=== PATIENT | female | born 1980 | race Caucasian/White ===

== ENCOUNTER 2016-05-01 09:20 | Day surgery (SDC) | payer OTHER ==
[2016-04-29 14:48] VITALS: BMI 51.1
[~2016-05-01 09:20] MED LIST: LACTATED RINGERS 1,000 ML IV SCH
[2016-05-01 09:32] VITALS: TEMP 98.1
[2016-05-01] MEDS ORDERED: LIDOCAINE 1% 20 ML VIAL (10MG/ML) FOR IV START SQ ONE (09:32)
[2016-05-01] MEDS ORDERED: LACTATED RINGERS 1,000 ML IV ONE (09:35)
[2016-05-01] MEDS ORDERED: BUPIVACAINE (PF) 0.5% 30 ML VIAL ONE (09:55)
[2016-05-01] MEDS ORDERED: TRIAMCINOLONE ACETONIDE 40 MG/ML 1 ML VIAL ONE (09:55)
[2016-05-01] MEDS ORDERED: fentaNYL (PF) 50 MCG/ML 2 ML AMP ONE (09:55)
[2016-05-01] MEDS ORDERED: MIDAZOLAM 2 MG/2 ML VIAL ONE (09:55)
--- NOTE | 2016-05-01 10:42 | P.PCN ---
Date of Procedure: 05/01/16 Procedure(s) Performed: PREOPERATIVE DIAGNOSIS: 1-Lumbar Spondylosis with Facet Arthropathy without myelopathy. POSTOPERATIVE DIAGNOSIS: 1- Lumbar Spondylosis with Facet Arthropathy without myelopathy. PROCEDURES : Right Radiofrequency thermocoagulation, L3-L4, L4-L5, and L5- S1 medial branch, with fluoroscopic guidance ANESTHESIA: IV sedation with versed 3 mg and fentaneyl 200 mcg and local infiltration with lidocaine 1% 6 ml EBL: Minimal PROCEDURE INDICATION: The patient with low back pain secondary to lumbar facet arthropathy who had more than 50% relief of her pain with previous diagnostic lumbar medial branch block with bupivacaine.and we did the radiofrequency ablation of the medial branch on patient gets good pain relief for more than 6 months ,and she is back to have the radiofrequency ablation of the medial branch to be done again. PROCEDURE DESCRIPTION / TECHNIQUE: The patient was seen and identified in the preoperative area. Risks, benefits, complications, including but not limited to risk of infection ,bleeding , allergic reactions to the medications and no complete pain releife , and alternatives were discussed with the patient, the patient agreed to proceed with the procedure and signed the consent. IV was started. Vital signs remained stable throughout the procedure. Patient was taken to the OR and time out was completed. The patient was placed in the prone position on the procedure table. The lumber area was prepped and draped in the usual sterile fashion. . Vital signs were closely monitored during the procedure .IV sedation was used during the procedure to decrease patients anxiety. Using AP and then oblique fluoroscopy, the eye of the Camilo dog corresponding to the connection between the superior and transverse articular processes of right L3, L4, and L5 were identified, marked, and localized with 1 % lidocaine. Subsequently, a 20 guage (VENUM ) 150-mm radiofrequency cannula with a 10-mm active tip was advanced guided by fluoroscopy to each of the eyes of the Camilo dog at right L3, L4, and L5. Each site then underwent sensory testing at 50 Hz and 0 to 1 volt and motor testing at 2.5 Hz and 0 to 3 volt with local stimulation, but no radicular symptoms down the legs. Thereafter the right L3-4, L4-5, and L5-S1 sites underwent radiofrequency thermocoagulation at 80 degrees celsius for 90 seconds after injecting 0.5 ml of PF lidocaine 1%. then After the thermocoagulation done , 1 ml of the block solution containing Kenalog 40 mg and 3 ml of marain 0.5% was injected at the right L3- 4 , L4-5 , and L5-S1, levels after negative aspiration of CSF and blood and with no paresthesias. Cannulas were retracted while injecting lidocaine 1% until the needle is out. At the end of the procedure, the skin was cleansed and bandages were applied. COMPLICATIONS: No acute complications. DISPOSITION / PLANS: The patient was placed in a supine position and transferred to the recovery area in a stable condition for observation and was discharged from the recovery room after meeting discharge criteria. Home discharge instructions given to the patient by the staff. The patient was reexamined prior to discharge. The patient will schedule a follow up in the clinic in 2-4 weeks.
[2016-05-01] MEDS ORDERED: IV FLUID CONTINUATION 1,000 ML IV ONE (10:49)
--- NOTE | 2016-05-01 11:29 | FL ---
EXAMINATION TYPE: FL guided pain mgmt statistic DATE OF EXAM: 05/01/2016 10:37 AM HISTORY: Flouroscopy time 40 seconds of fluoroscopy provided. IMPRESSION: 1. Fluoroscopy time.
[2016-05-01 11:43] VITALS: BP 115/74; PULSE 75; RESP 16
== END 2016-05-01 11:33 | disposition home or self-care (01) ==
LOC: ORPAIN 09:20
PROVIDERS: ATTEND Specialist
DX: M46.86 Other specified inflammatory spondylopathies, lumbar region (principal); M47.816 Spondylosis without myelopathy or radiculopathy, lumbar region; Z88.5 Allergy status to narcotic agent; Z88.0 Allergy status to penicillin
CPT/HCPCS: 81025; 64635; 64636 ×2; J2250; J3301; J3010

== ENCOUNTER 2017-08-27 13:16 | Inpatient (IN) | payer OTHER ==
[2017-08-27 13:33] LABS: Basophils % (A) 0 %; Eosinophils # (A) 0.2 k/uL (0-0.7); Eosinophils % (A) 1 %; HCT 36.4 % (34.0-46.0); HGB 11.6 gm/dL (11.4-16.0); Hypochromasia Slight; Lymphocytes # (A) 0.4 k/uL (1.0-4.8); Lymphocytes % (A) 3 %; Mean Platelet Volume 7.4; Microcytosis Slight; Monocytes # (A) 0.1 k/uL (0-1.0); Monocytes % (A) 1 %; Neutrophils # (A) 12.6 k/uL (1.3-7.7); Neutrophils % (A) 95 %; Platelet Count 232 k/uL (150-450); RBC 4.85 m/uL (3.80-5.40); RDW 15.5 % (11.5-15.5); WBC 13.4 k/uL (3.8-10.6)
[2017-08-27 13:44] LABS: INR 1.1 (<1.2); Partial Thromboplastin Time 31.4 sec (22.0-30.0); Prothrombin Time 10.3 sec (9.0-12.0)
[2017-08-27] MEDS ORDERED: HEPARIN SODIUM,PORCINE 5,000 UNIT/ML 1 ML VIAL IV PRN (14:00)
[2017-08-27] MEDS ORDERED: WATER IV SCH ×2 (14:00)
[2017-08-27] MEDS ORDERED: DEXTROSE 5% IV SCH ×2 (14:00)
[2017-08-27] MEDS ORDERED: D5W PMX IV SCH ×2 (14:00)
[2017-08-27] MEDS ORDERED: HEPARIN SODIUM PORCINE IV SCH ×2 (14:00)
[2017-08-27 14:01] LABS: ALT 15 U/L (9-52); AST 20 U/L (14-36); Albumin 3.8 g/dL (3.5-5.0); Alkaline Phosphatase 82 U/L (38-126); Anion Gap 15 mmol/L; Blood Urea Nitrogen 10 mg/dL (7-17); Calcium 9.1 mg/dL (8.4-10.2); Carbon Dioxide 22 mmol/L (22-30); Chloride 106 mmol/L (98-107); Glucose 138 mg/dL (74-99); Magnesium 2.1 mg/dL (1.6-2.3); Potassium 3.8 mmol/L (3.5-5.1); Sodium 143 mmol/L (137-145); Total Bilirubin 0.5 mg/dL (0.2-1.3); Total Protein 6.9 g/dL (6.3-8.2)
[2017-08-27 14:06] LABS: Creatine Kinase MB 1.4 ng/mL (0.0-2.4)
[2017-08-27 14:10] LABS: Troponin I 0.423 ng/mL (0.000-0.034)
[2017-08-27] MEDS ORDERED: NITROGLYCERIN OINT 1 INCH/GM PACKET TOPICAL STA (14:15)
[2017-08-27] MEDS ORDERED: MORPHINE SULFATE 4 MG/ML SYRINGE IVP STA (14:15)
--- NOTE | 2017-08-27 14:15 | ED ---
General Adult HPI - General Chief complaint: Chest Pain Stated complaint: CHEST PAIN Time Seen by Provider: 08/27/17 13:21 Source: patient, RN notes reviewed Mode of arrival: EMS Limitations: no limitations - History of Present Illness Initial comments: 37-year-old female transferred from outside hospital for elevated troponin and chest pain. Patient's pain began yesterday night, was substernal. It was somewhat typical for ACS. EKG showed nonspecific T-wave inversion, patient was heparinized and transferred for cardiology evaluation. At the time of my evaluation patient is still having ongoing pain. No nausea or vomiting. Mild dyspnea. No cough or fever. - Related Data Home Medications Medication Instructions Recorded Confirmed Ferrous Sulfate [Iron (65 MG 325 mg PO DAILY 10/05/14 08/27/17 Elemental)] Budesonide-Formot 160-4.5 Mcg 2 inhaler INHALATION BID 12/06/14 08/27/17 [Symbicort 160-4.5 Mcg Inhaler] Albuterol Inhaler [Ventolin Hfa 1 - 2 puff INHALATION Q6HR PRN 01/29/16 08/27/17 Inhaler] Albuterol Nebulized [Ventolin 2.5 mg INHALATION RT-Q6H PRN 01/29/16 08/27/17 Nebulized] Loratadine [Claritin] 10 mg PO DAILY 01/29/16 08/27/17 Oxybutynin Chloride [Ditropan XL] 15 mg PO DAILY 01/29/16 08/27/17 Previous Rx's Medication Instructions Recorded Ibuprofen [Motrin] 800 mg PO Q8HR PRN #90 tablet 12/06/14 Allergies Allergy/AdvReac Type Severity Reaction Status Date / Time varenicline [From Chantix] Allergy Unknown Rash/Hives Verified 08/27/17 14:06 codeine Allergy Rash/Hives Verified 08/27/17 14:06 Penicillins Allergy Rash/Hives Verified 08/27/17 14:06 Review of Systems ROS Statement: Those systems with pertinent positive or pertinent negative responses have been documented in the HPI. ROS Other: All systems not noted in ROS Statement are negative. Past Medical History Past Medical History: Asthma, COPD, Musculoskeletal Disorder, Osteoarthritis (OA ), Pulmonary Embolus (PE) Additional Past Medical History / Comment(s): SPINA BIFIDA, BILATERAL PE (?2004) , ANEMIA, BACK PAIN. History of Any Multi-Drug Resistant Organisms: None Reported Past Surgical History: Back Surgery, Section, Tubal Ligation Additional Past Surgical History / Comment(s): BACK SURGERY X3, PAIN CLINIC PROCEDURES Past Anesthesia/Blood Transfusion Reactions: No Reported Reaction Past Psychological History: ADD/ADHD Smoking Status: Current every day smoker Past Alcohol Use History: None Reported Past Drug Use History: None Reported - Past Family History Mother Family Medical History: No Reported History General Exam Limitations: no limitations General appearance: alert, in no apparent distress Head exam: Present: atraumatic, normocephalic Eye exam: Present: normal appearance, PERRL ENT exam: Present: normal exam Neck exam: Present: normal inspection. Absent: tenderness, meningismus Respiratory exam: Present: normal lung sounds bilaterally. Absent: respiratory distress Cardiovascular Exam: Present: normal rhythm, tachycardia GI/Abdominal exam: Present: soft. Absent: distended, tenderness Extremities exam: Present: normal inspection, normal capillary refill. Absent: pedal edema, calf tenderness Course Vital Signs 08/27/17 08/27/17 13:20 13:23 Temperature 98.0 F Pulse Rate 84 Pulse Rate [ 84 Lap Layer ] Respiratory 16 Rate Blood Pressure 170/81 O2 Sat by Pulse 98 Oximetry EKG Findings - EKG Comments: EKG Findings:: EK shows sinus tachycardia with a rate of 102, CA interval 154, QRS duration 82, QTC 463, there is T-wave inversion in the inferior leads, no ST segment elevation. Medical Decision Making - Medical Decision Making 37-year-old female with central chest pain, troponin elevation and EKG changes. Patient is transferred, she is continued on heparin, given nitroglycerin paste and morphine in the emergency department she has ongoing pain in case is discussed with Dr. Hernandez, cardiology, he is able to evaluate the patient emergency department. Patient will receive a stat echo, she will be admitted on heparin and likely go for urgent heart catheterization. Chest x-ray, interpreted as normal, CT angiography negative for PE. Repeat laboratory studies are pending. - Lab Data Result diagrams: 08/27/17 13:20 08/27/17 13:20 Lab Results 08/27/17 08/27/17 08/27/17 Range/Units 13:20 13:20 13:20 WBC 13.4 H (3.8-10.6) k/uL RBC 4.85 (3.80-5.40) m/uL Hgb 11.6 (11.4-16.0) gm/dL Hct 36.4 (34.0-46.0) % MCV 75.0 L (80.0-100.0) fL MCH 24.0 L (25.0-35.0) pg MCHC 32.0 (31.0-37.0) g/dL RDW 15.5 (11.5-15.5) % Plt Count 232 (150-450) k/uL Neutrophils % 95 % Lymphocytes % 3 % Monocytes % 1 % Eosinophils % 1 % Basophils % 0 % Neutrophils # 12.6 H (1.3-7.7) k/uL Lymphocytes # 0.4 L (1.0-4.8) k/uL Monocytes # 0.1 (0-1.0) k/uL Eosinophils # 0.2 (0-0.7) k/uL Basophils # 0.0 (0-0.2) k/uL Hypochromasia Slight Microcytosis Slight PT (9.0-12.0) sec INR (<1.2) APTT (22.0-30.0) sec Sodium 143 (137-145) mmol/L Potassium 3.8 (3.5-5.1) mmol/L Chloride 106 (98-107) mmol/L Carbon Dioxide 22 (22-30) mmol/L Anion Gap 15 mmol/L BUN 10 (7-17) mg/dL Creatinine 0.70 (0.52-1.04) mg/dL Est GFR (CKD-EPI)AfAm >90 (>60 ml/min/1.73 sqM) Est GFR (CKD-EPI)NonAf >90 (>60 ml/min/1.73 sqM) Glucose 138 H (74-99) mg/dL Calcium 9.1 (8.4-10.2) mg/dL Magnesium 2.1 (1.6-2.3) mg/dL Total Bilirubin 0.5 (0.2-1.3) mg/dL AST 20 (14-36) U/L ALT 15 (9-52) U/L Alkaline Phosphatase 82 (38-126) U/L Total Creatine Kinase 110 (30-135) U/L CK-MB (CK-2) 1.4 (0.0-2.4) ng/mL CK-MB (CK-2) Rel Index 1.3 Troponin I 0.423 H* (0.000-0.034) ng/mL Total Protein 6.9 (6.3-8.2) g/dL Albumin 3.8 (3.5-5.0) g/dL 08/27/17 Range/Units 13:20 WBC (3.8-10.6) k/uL RBC (3.80-5.40) m/uL Hgb (11.4-16.0) gm/dL Hct (34.0-46.0) % MCV (80.0-100.0) fL MCH (25.0-35.0) pg MCHC (31.0-37.0) g/dL RDW (11.5-15.5) % Plt Count (150-450) k/uL Neutrophils % % Lymphocytes % % Monocytes % % Eosinophils % % Basophils % % Neutrophils # (1.3-7.7) k/uL Lymphocytes # (1.0-4.8) k/uL Monocytes # (0-1.0) k/uL Eosinophils # (0-0.7) k/uL Basophils # (0-0.2) k/uL Hypochromasia Microcytosis PT 10.3 (9.0-12.0) sec INR 1.1 (<1.2) APTT 31.4 H (22.0-30.0) sec Sodium (137-145) mmol/L Potassium (3.5-5.1) mmol/L Chloride (98-107) mmol/L Carbon Dioxide (22-30) mmol/L Anion Gap mmol/L BUN (7-17) mg/dL Creatinine (0.52-1.04) mg/dL Est GFR (CKD-EPI)AfAm (>60 ml/min/1.73 sqM) Est GFR (CKD-EPI)NonAf (>60 ml/min/1.73 sqM) Glucose (74-99) mg/dL Calcium (8.4-10.2) mg/dL Magnesium (1.6-2.3) mg/dL Total Bilirubin (0.2-1.3) mg/dL AST (14-36) U/L ALT (9-52) U/L Alkaline Phosphatase (38-126) U/L Total Creatine Kinase (30-135) U/L CK-MB (CK-2) (0.0-2.4) ng/mL CK-MB (CK-2) Rel Index Troponin I (0.000-0.034) ng/mL Total Protein (6.3-8.2) g/dL Albumin (3.5-5.0) g/dL Critical Care Time Critical Care Time: Yes Total Critical Care Time: 35 Disposition Clinical Impression: NSTEMI (non-ST elevated myocardial infarction) Disposition: ADMITTED IP TO THIS [facility] Condition: Serious Is patient prescribed a controlled substance at d/c from ED?: No Referrals: Fred Sandhu MD [Primary Care Provider] - 1-2 days Time of Disposition: 14:18 Decision to Admit Reason: Admit from EC Decision Date: 08/27/17 Decision Time: 14:18
[2017-08-27] MEDS ORDERED: NALOXONE 0.4 MG/ML 1 ML VIAL IV PRN (14:19)
[2017-08-27] MEDS ORDERED: SODIUM CHLORIDE 0.9% 1,000 ML IV ONE (15:01)
[2017-08-27] MEDS ORDERED: LIDOCAINE 2% INJ 20 MG/ML SQ ONE (15:11)
--- NOTE | 2017-08-27 15:11 | CONS ---
CONSULTATION Mrs. Steve russell is a 37-year-old female, who was transferred from [facility] with a complaint of chest pain and shortness of breath. This patient has been having problems breathing and cough for a couple of weeks. Patient was seen by primary care physician about 2 weeks ago. Patient was placed on steroids about a week ago. Patient was seen for similar complaints in the emergency room and the patient was treated for asthma exacerbation. Patient went to the emergency room this morning with the complaint of chest pain and shortness of breath and wheezing. The pain is in the substernal area. It is a sharp pain. Pain does increase at times with coughing. Patient underwent a CT scan of the chest which was negative for anything. Patient's initial troponin was 0.02. EKG shows small Q-waves in 3, and T-wave inversions in lead 3. Patient continued to have chest pain here in the emergency room. Repeat troponin here shows . Echocardiogram was done which shows questionable possible inferobasal wall motion abnormality. In view of the persistent chest pain, abnormal EKG, negative CT scan of the chest, patient is advised further evaluation with a cardiac catheterization for definitive diagnosis. PAST MEDICAL HISTORY: Includes a history of asthma, history of spina bifida and history of hypertension. Patient has a history of back surgery, and tubal ligation. HOME MEDICATIONS: Included Adipex, Claritin, Ditropan, lisinopril, Symbicort, Ventolin, and prednisone. PHYSICAL EXAMINATION: At present reveals a 37-year-old, obesely-built female, who is having a moderate degree of chest pain. The heart rate is 110 per minute, blood pressure is 180/80 mmHg. HEENT examination is negative. Neck is supple. There is no increase in jugular venous pressure. Both the carotid pulses are felt. There is no bruit. Chest is symmetrical. Heart, the PMI is not felt. First and second heart sounds are normal. Lungs are clinically clear to auscultation and percussion. Abdomen is negative. Extremities, peripheral pulses are 2+. FINAL IMPRESSION: This patient is having persistent chest discomfort, some mild EKG abnormality and abnormal troponin, raising the possibility of non-Q-wave myocardial infarction. Patient underwent a CT scan of the chest at [facility] which was reportedly to be normal. Echocardiogram shows possible inferobasal wall motion abnormality. In view of the abnormal troponin and persistent chest pain, patient is advised further evaluation with cardiac catheterization for definitive diagnosis. Patient fully explained the procedure and risks and understands. MMODL / IJN: [id number] /
[2017-08-27] MEDS ORDERED: MIDAZOLAM 2 MG/2 ML VIAL IVP ONE (15:13)
[2017-08-27] MEDS ORDERED: METOPROLOL TARTRATE 5 MG/5 ML VIAL IVP ONE ×2 (15:13→15:18)
[2017-08-27] MEDS ORDERED: fentaNYL (PF) 50 MCG/ML 2 ML AMP IVP ONE (15:13)
[2017-08-27] MEDS ORDERED: IOPAMIDOL-370 125ML BTL INJ ONE (15:27)
[2017-08-27] MEDS ORDERED: RX INFO: IV CONTRAST WAS GIVEN 1 EACH MISC MISCELLANE PRN (15:38)
[2017-08-27] MEDS: HYDROcodone/APAP 5-325MG 1 EACH TAB PO PRN (15:58)
[2017-08-27] MEDS: SODIUM CHLORIDE 0.9% 1,000 ML IV SCH (16:55)
[2017-08-27] MEDS: IBUPROFEN 400 MG TAB PO SCH ×2 (17:34→20:12)
[2017-08-27] MEDS: METOPROLOL TARTRATE 25 MG TAB PO SCH ×2 (17:35→20:13)
[2017-08-27 20:23] LABS: Creatine Kinase MB 1.5 ng/mL (0.0-2.4)
[2017-08-27 20:29] LABS: Troponin I 0.601 ng/mL (0.000-0.034)
--- NOTE | 2017-08-27 20:59 | CC ---
CARDIAC CATHETERIZATION REPORT This patient was transferred from [facility] with symptoms of chest pain and shortness of breath. The patient was having a sharp pain in the substernal area. EKG showed a small Q-wave in lead 3 with T-wave inversions in lead 3. Patient's initial troponin was 0.2 and 2nd troponin was 0.4. Patient had a CT scan done there which did not show any evidence of pulmonary embolism or any lung pathology. In view of the persistent chest pain and abnormal troponin. Patient was taken to the cardiac catheterization lab for definitive diagnosis. PROCEDURE: The right groin was prepped and draped in the usual manner and the skin was infiltrated with 2% Xylocaine the right femoral artery was entered using Seldinger technique. A #6- Hungarian sheath was placed in. Selective coronary angiography was then performed in multiple projections and the left ventriculography was performed in 30 degree REINA projection. The patient tolerated the procedure well. SELECTIVE CORONARY ANGIOGRAPHY: Left main coronary artery is normal and patent. LAD is a good caliber blood vessel and gives rise to good-sized diagonal branch. LAD and its branches are normal. Circumflex coronary artery is normal. Right coronary artery is normal. Left ventriculography reveals normal left ventricular systolic function with ejection fraction of 55%. Left ventricular end-diastolic pressure is 12 to 16 mmHg prior to angiography. No gradient is noted across the aortic valve. FINAL IMPRESSION: This study reveals normal coronary arteries. Left ventricular systolic function is normal. The exact cause of the patient's elevation in the troponin is unclear, possible myocarditis or pericarditis is considered. We will obtain a sedimentation rate and C- reactive protein. Patient will be treated with ibuprofen and beta quentin. MMODL / IJN: [id number] /
[2017-08-27] MEDS ORDERED: SYMBICORT 160-4.5 MCG INHALER INHALATION SCH (21:30)
[2017-08-27] MEDS ORDERED: METOPROLOL TARTRATE 25 MG TAB PO SCH (22:00)
[2017-08-27] MEDS: LORATADINE 10 MG TAB PO SCH (22:42)
[2017-08-27] MEDS: NICOTINE 14MG/24HR PATCH TRANSDERM SCH (22:43)
[2017-08-27] MEDS: methylPREDNISolone SOD SUCCI 40 MG/ML 1 ML VIAL IV SCH (22:43)
--- NOTE | 2017-08-27 22:50 | HP ---
HISTORY AND PHYSICAL DATE OF SERVICE: 08/27/2017 PRESENTING COMPLAINT: Cough, chest pain. HISTORY OF PRESENTING COMPLAINT: This is a pleasant 37-year-old patient of Dr. Sandhu. Patient's chronic stable medical conditions include osteoarthritis, especially in the lower back; the patient had a PE in 2004, spina bifid, ADHD, and the patient has been a smoker for the last 5 years. The patient was diagnosed with asthma in 2004. The patient has been sick for about 3 weeks; started off with heavy bouts of coughing, not able to bring up much, wheezing. She went to see her family doctor and was given a Z-Harvey. She was feeling a bit better toward the end of it, then symptoms again flared up and she went down to the ER. She was given IV Solu-Medrol and told to complete her Z-Harvey. Patient continued to cough up and patient was anteriorly having some pain when she would take a deep breath and chest would hurt also when she would cough. She would feel better sitting up and leaning forward. Denied any obvious fever. No phlegm. When patient presented here, her troponin was 0.4, 0.6, and she had nonspecific T-wave changes from the ER. Cardiology was called and patient was taken for a cardiac catheterization that revealed normal coronary arteries. REVIEW OF SYSTEMS: CONSTITUTIONAL: Tired. Feels warm. HEENT: None. RESPIRATORY: As above. CARDIOVASCULAR: Some precordial pain. GASTROINTESTINAL: None. GENITOURINARY: None. MUSCULOSKELETAL: Lower back pain. PAST MEDICAL HISTORY: 1. PE in 2004. 2. Asthma. 3. Spina bifida. 4. ADHD. PAST SURGICAL HISTORY: 1. Back surgery x3. 2. . 3. Tubal ligation. 4. Pain clinic procedures. SOCIAL HISTORY: Patient has been smoking about half a pack a day for 5 years. with kids at home. 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 FAMILY HISTORY: Reviewed; noncontributory to presentation. HOME MEDICATIONS: 1. Ditropan XL 15 mg p.o. daily. 2. Claritin 10 mg p.o. daily. 3. Motrin 800 mg p.o. q.8 p.r.n. 4. Ferrous sulfate 325 p.o. daily. 5. Symbicort 160/4.5 two puffs b.i.d. 6. Ventolin inhaler 2.5 inhalation q.6 p.r.n. 7. Ventolin HFA 1-2 puffs q.6 p.r.n. ALLERGIES: 1. CHANTIX. 2. CODEINE. 3. PENICILLIN. PHYSICAL EXAMINATION: VITAL SIGNS ON PRESENTATION: Temperature 98, pulse 84, respiration 16, blood pressure 170/81, pulse ox 98% on 2 L. Repeat blood pressure was 120/77. GENERAL APPEARANCE: Well built; BMI of 51.5. Sitting up, slightly uncomfortable. EYES: Pupils equal. Conjunctivae normal. HEENT: External appearance of nose and ears normal. Oral cavity normal. NECK: JVD not raised. Mass not palpable. RESPIRATORY: Effort increased. LUNGS: Decreased breath sounds. Prolonged expiration and wheezing. CARDIOVASCULAR: First and second sounds normal. No edema. ABDOMEN: Soft, nontender. Liver and spleen not palpable. LYMPHATIC: No lymph node palpable in neck or axillae. PSYCHIATRY: Alert and oriented x3. Mood and affect normal. NEUROLOGICAL: Pupils equal. Cranial nerves grossly intact. Power and sensation grossly intact. INVESTIGATIONS: White count 13.4, hematocrit 36.4, increased neutrophils. Potassium 3.8. BUN and creatinine are normal. Troponin 0.4, 0.6. C-reactive protein is 33.3. EKG: Normal sinus rhythm with some T-wave flattening in V4 to V6, non-specific, and some changes in the inferior leads. ASSESSMENT: 1. This is a patient who for 3 weeks has been having bouts of coughing, congestion in the chest, low-grade fever; given 2 courses of Z-Harvey and Z-Harvey associated with wheezing, cough. Appears to have a viral upper respiratory tract infection, probably pneumonitis associated with possibly myocarditis and causing troponin leaks. 2. Troponin leaks with chest pain. Patient was taken to the cardiac veterinarian laboratory animal care and was found to have normal coronaries. 3. Moderate persistent asthma with acute exacerbation. 4. Chronic low back pain from arthralgia. 5. Chronic spina bifida. 6. Attention deficit hyperactivity disorder. 7. Morbid obesity; body mass index 51.5. PLAN: Patient was started on nebulized bronchodilators, nebulized steroids, IV Solu-Medrol. She was given Lovenox for DVT prophylaxis. Will also seek further cardiology orders. Smoking cessation counseling was done with the patient at length. It was explained that this is definitely making her condition of asthma worse. She will take a nicotine patch. She states that she does not want to smoke. More than 3 minutes were spent on this aspect of the case. NELSON / HERBERT: [id number] /
[2017-08-28] MEDS: IPRATROPIUM-ALBUTEROL 3 ML NEB INHALATION SCH ×8 (00:52→23:40)
[2017-08-28] MEDS: BUDESONIDE 1 MG/2 ML NEBU INHALATION SCH ×3 (00:52→20:36)
[2017-08-28 02:10] LABS: Anisocytosis Slight; Basophils % (A) 0 %; Eosinophils % (A) 0 %; HCT 35.3 % (34.0-46.0); HGB 10.6 gm/dL (11.4-16.0); Hypochromasia Moderate; Lymphocytes # (A) 0.5 k/uL (1.0-4.8); Lymphocytes % (A) 5 %; MCH 23.1 pg (25.0-35.0); MCHC 30.1 g/dL (31.0-37.0); MCV 76.8 fL (80.0-100.0); Mean Platelet Volume 8.3; Microcytosis Slight; Monocytes # (A) 0.1 k/uL (0-1.0); Monocytes % (A) 2 %; Neutrophils # (A) 8.5 k/uL (1.3-7.7); Neutrophils % (A) 92 %; Platelet Count 200 k/uL (150-450); WBC 9.2 k/uL (3.8-10.6)
[2017-08-28 02:22] LABS: Creatine Kinase MB 1.5 ng/mL (0.0-2.4)
[2017-08-28 02:24] LABS: Troponin I 0.447 ng/mL (0.000-0.034)
[2017-08-28 02:30] LABS: ALT 33 U/L (9-52); AST 17 U/L (14-36); Albumin 3.4 g/dL (3.5-5.0); Alkaline Phosphatase 65 U/L (38-126); Anion Gap 14 mmol/L; Blood Urea Nitrogen 13 mg/dL (7-17); Calcium 9.2 mg/dL (8.4-10.2); Carbon Dioxide 20 mmol/L (22-30); Chloride 107 mmol/L (98-107); Glucose 140 mg/dL (74-99); Potassium 4.6 mmol/L (3.5-5.1); Sodium 141 mmol/L (137-145); Total Bilirubin 0.3 mg/dL (0.2-1.3); Total Protein 6.3 g/dL (6.3-8.2)
[2017-08-28 06:20] LABS: Glucose,Whole Blood 132 mg/dL (75-99)
[2017-08-28] MEDS: INSULIN ASPART 100 UNIT/ML 1 ML 10 ML VIAL SQ SCH ×3 (06:22→17:28)
[2017-08-28] MEDS: OXYBUTYNIN 15 MG TAB.ER.24 PO SCH (08:00)
[2017-08-28] MEDS: methylPREDNISolone SOD SUCCI 40 MG/ML 1 ML VIAL IV SCH ×2 (08:00→16:13)
[2017-08-28] MEDS: NICOTINE 14MG/24HR PATCH TRANSDERM SCH (08:01)
[2017-08-28] MEDS: LORATADINE 10 MG TAB PO SCH ×2 (08:01→21:22)
[2017-08-28] MEDS: ENOXAPARIN 40 MG/0.4 ML SYRINGE SQ SCH (08:01)
[2017-08-28] MEDS: METOPROLOL TARTRATE 25 MG TAB PO SCH ×3 (08:01→21:23)
[2017-08-28] MEDS: IBUPROFEN 400 MG TAB PO SCH ×3 (08:04→21:21)
--- NOTE | 2017-08-28 08:13 | XR ---
EXAMINATION TYPE: XR chest 2V DATE OF EXAM: 08/28/2017 CLINICAL HISTORY: Cough TECHNIQUE: 10/05/2014 COMPARISON: None FINDINGS: There is no focal air space opacity, pleural effusion, or pneumothorax seen. The cardiac silhouette size is within normal limits. The osseous structures are intact. IMPRESSION: No acute cardiopulmonary process.
--- NOTE | 2017-08-28 10:44 | ECHOF ---
Referral Reason:CP MEASUREMENTS -------- HEIGHT: 162.6 cm WEIGHT: 136.1 kg BP: RVIDd: 2.7 cm (< 3.3) IVSd: 1.1 cm (0.6 - 1.1) LVIDd: 5.0 cm (3.9 - 5.3) LVPWd: 1.2 cm (0.6 - 1.1) IVSs: 1.5 cm LVIDs: 3.8 cm LVPWs: 1.2 cm LA Diam: 3.4 cm (2.7 - 3.8) Ao Diam: 3.3 cm (2.0 - 3.7) AV Cusp: 2.1 cm (1.5 - 2.6) LA Diam: 3.7 cm (2.7 - 3.8) MV EXCURSION: 14.230 mm (> 18.000) MV EF SLOPE: 98 mm/s (70 - 150) EPSS: 0.4 cm MV E Uriel: 0.68 m/s MV DecT: 182 ms MV A Uriel: 0.90 m/s MV E/A Ratio: 0.76 FINDINGS -------- Sinus rhythm. This was a technically adequate study. Morbid Obesity The left ventricular size is normal. There is mild concentric left ventricular hypertrophy. Overa ll left ventricular systolic function is normal with, an EF between 55 - 60 %. The right ventricle is normal in size. The left atrial size is normal. The right atrial size is normal. The aortic valve is trileaflet, and appears structurally normal. No aortic stenosis or regurgitation. Mild mitral regurgitation is present. Mild tricuspid regurgitation present. There is no evidence of pulmonary hypertension. The right v entricular systolic pressure, as measured by Doppler, is {RVSP}. The pulmonic valve was not well visualized. The aortic root size is normal. There is no pericardial effusion. CONCLUSIONS -------- 1. Morbid Obesity 2. The left ventricular size is normal. 3. There is mild concentric left ventricular hypertrophy. 4. Overall left ventricular systolic function is normal with, an EF between 55 - 60 %. 5. The aortic valve is trileaflet, and appears structurally normal. No aortic stenosis or regurgitati on. 6. Mild mitral regurgitation is present. 7. Mild tricuspid regurgitation present. 8. There is no evidence of pulmonary hypertension. 9. The right ventricular systolic pressure, as measured by Doppler, is {RVSP}. 10. The pulmonic valve was not well visualized. 11. The aortic root size is normal. 12. There is no pericardial effusion. AEROSPACE STRESS ENGINEER: Kerline Davis RDCS
[2017-08-28 11:47] LABS: Glucose,Whole Blood 180 mg/dL (75-99)
[2017-08-28 12:02] VITALS: BMI 50.3
[2017-08-28] MEDS: HYDROcodone/APAP 5-325MG 1 EACH TAB PO PRN (12:13)
[2017-08-28] MEDS: SODIUM CHLORIDE 0.9% 1,000 ML IV SCH ×2 (14:33→17:41)
[2017-08-28 16:59] LABS: Glucose,Whole Blood 129 mg/dL (75-99)
--- NOTE | 2017-08-28 17:51 | PN ---
PROGRESS NOTE DATE OF SERVICE: 08/28/2017 PRESENTING COMPLAINT: Short of breath and wheezing. INTERVAL HISTORY: This patient presents with acute asthma exacerbation, probably viral pneumonitis, with associated myocarditis. Cardiac cath showed normal coronaries. Patient's breathing and wheezing are better. Cough is improving. REVIEW OF SYSTEMS: Done for constitutional, cardiovascular, GI, pulmonary; relevant findings as above. CURRENT MEDICATIONS: Current medications are reviewed. They include: 1. DuoNeb. 2. Nebulized Pulmicort. 3. IV Solu-Medrol. PHYSICAL EXAMINATION: Temperature 97.6 pulse 96, respiration 16, blood pressure 116/66, pulse ox 94% on room air. GENERAL APPEARANCE: Sitting up. More comfortable today. EYES: Pupils equal. Conjunctivae normal. HEENT: External appearance of nose and ears normal. Oral cavity normal. NECK: JVD not raised. Mass not palpable. RESPIRATORY: Effort increased. LUNGS: Improved air entry. Decreased wheezing. CARDIOVASCULAR: First and second sounds normal. No edema. ABDOMEN: Soft, nontender. Liver and spleen not palpable. PSYCHIATRY: Alert and oriented x3. Mood and affect normal. INVESTIGATIONS: White count 9.2, potassium 4.6. Chest x-ray: Nil acute. ASSESSMENT: 1. Acute exacerbation of moderate persistent asthma. 2. Acute tracheobronchitis causing myocarditis with elevation of troponin. 3. Chronic low back pain from arthralgia. 4. Chronic spina bifida. 5. Attention deficit hyperactivity disorder. 6. Morbid obesity with body mass index of 31.5. PLAN: Care was discussed with the patient. Continue current medication and treatment plan. Keep on IV Solu-Medrol for another 24 hours. Patient encouraged to be out of bed. MMODL / IJN: [id number] /
[2017-08-28 20:59] LABS: Glucose,Whole Blood 158 mg/dL (75-99)
[2017-08-29] MEDS: methylPREDNISolone SOD SUCCI 40 MG/ML 1 ML VIAL IV SCH ×2 (00:23→08:05)
[2017-08-29 01:42] VITALS: TEMP 97
[2017-08-29] MEDS: IPRATROPIUM-ALBUTEROL 3 ML NEB INHALATION SCH ×4 (02:28→15:21)
[2017-08-29] MEDS: HYDROcodone/APAP 5-325MG 1 EACH TAB PO PRN (05:18)
[2017-08-29 05:41] LABS: Basophils % (A) 0 %; Eosinophils % (A) 0 %; HCT 33.3 % (34.0-46.0); HGB 10.2 gm/dL (11.4-16.0); Hypochromasia Moderate; Lymphocytes # (A) 0.4 k/uL (1.0-4.8); Lymphocytes % (A) 5 %; MCH 23.4 pg (25.0-35.0); MCHC 30.5 g/dL (31.0-37.0); MCV 76.7 fL (80.0-100.0); Mean Platelet Volume 6.9; Microcytosis Slight; Monocytes # (A) 0.2 k/uL (0-1.0); Monocytes % (A) 2 %; Neutrophils # (A) 8.2 k/uL (1.3-7.7); Neutrophils % (A) 93 %; Platelet Count 192 k/uL (150-450); RBC 4.34 m/uL (3.80-5.40); RDW 15.6 % (11.5-15.5); WBC 8.8 k/uL (3.8-10.6)
[2017-08-29] MEDS: INSULIN ASPART 100 UNIT/ML 1 ML 10 ML VIAL SQ SCH ×2 (06:06→13:08)
[2017-08-29 06:07] LABS: Glucose,Whole Blood 130 mg/dL (75-99)
[2017-08-29] MEDS: SODIUM CHLORIDE 0.9% 1,000 ML IV SCH (06:17)
[2017-08-29 07:59] VITALS: RESP 18
[2017-08-29] MEDS: ENOXAPARIN 40 MG/0.4 ML SYRINGE SQ SCH (08:05)
[2017-08-29] MEDS: IBUPROFEN 400 MG TAB PO SCH (08:06)
[2017-08-29] MEDS: OXYBUTYNIN 15 MG TAB.ER.24 PO SCH (08:07)
[2017-08-29] MEDS: METOPROLOL TARTRATE 25 MG TAB PO SCH (08:07)
[2017-08-29] MEDS: LORATADINE 10 MG TAB PO SCH (08:07)
[2017-08-29] MEDS: NICOTINE 14MG/24HR PATCH TRANSDERM SCH (08:07)
[2017-08-29] MEDS: BUDESONIDE 1 MG/2 ML NEBU INHALATION SCH (08:16)
[2017-08-29 12:21] LABS: Glucose,Whole Blood 76 mg/dL (75-99)
--- NOTE | 2017-08-29 12:33 | P.PN ---
Subjective Progress Note Date: 08/29/17 This is a 37-year-old female who was transferred here from [facility] with complaints of chest pain and shortness of breath. Patient had also been having an upper respiratory infection with associated cough as an outpatient. Her initial EKG showed small Q waves in 3 and T-wave inversions. Troponin was also mildly elevated. Echocardiogram with Doppler study revealed questionable possible inferior basal wall abnormality. For this reason patient underwent a cardiac catheterization by Dr. sudheer casarez which revealed normal coronary arteries, LV function was normal. Patient did have an elevated C reactive protein as well as sed rate, suggesting myocarditis. From cardiology' s perspective, patient may be able to be discharged home today. We will make her a follow-up appointment to see Dr. sudheer casarez in the office post discharge. She still has some mild congestion in the chest today, mild shortness of breath with that. Objective - Vital Signs Vital signs: Vital Signs Temp 97.0 F L 08/29/17 04:00 Pulse 87 08/29/17 12:19 Resp 18 08/29/17 08:00 BP 132/82 08/29/17 07:57 Pulse Ox 99 08/29/17 08:16 Intake & Output 08/28/17 08/29/17 08/29/17 18:59 06:59 18:59 Intake Total 2820 600 Balance 2820 600 Weight 132.9 kg 130 kg Intake: Intake, IV Titration 900 600 Amount Sodium Chloride 0.9% 1, 900 600 000 ml @ 75 mls/hr IV . [id number] [facility] Rx#:[id number] Oral 1920 Other: Voiding Method Toilet # Voids 1 1 # Bowel Movements 0 - Exam PHYSICAL EXAMINATION: HEENT: Head is atraumatic, normocephalic. Pupils equal, round. Neck is supple. There is no elevated jugular venous pressure. HEART EXAMINATION: Heart S1, S2 normal. No murmur or gallop heard. CHEST EXAMINATION: On's reveal mild scattered wheezing throughout. ABDOMEN: Soft, obese, nontender. Bowel sounds are heard. No organomegaly noted. EXTREMITIES: 2+ peripheral pulses with no evidence of peripheral edema and no calf tenderness noted. NEUROLOGIC patient is awake, alert and oriented -3. . - Labs CBC & Chem 7: 08/29/17 05:05 08/28/17 01:18 Labs: Abnormal Lab Results - Last 24 Hours (Table) 08/28/17 08/28/17 08/28/17 Range/Units 16:28 16:58 20:58 Hgb (11.4-16.0) gm/dL Hct (34.0-46.0) % MCV (80.0-100.0) fL MCH (25.0-35.0) pg MCHC (31.0-37.0) g/dL RDW (11.5-15.5) % Neutrophils # (1.3-7.7) k/uL Lymphocytes # (1.0-4.8) k/uL POC Glucose (mg/dL) 129 H 158 H (75-99) mg/dL Troponin I 0.231 H* (0.000-0.034) ng/mL 08/28/17 08/29/17 08/29/17 Range/Units 22:01 05:05 05:05 Hgb 10.2 L (11.4-16.0) gm/dL Hct 33.3 L (34.0-46.0) % MCV 76.7 L (80.0-100.0) fL MCH 23.4 L (25.0-35.0) pg MCHC 30.5 L (31.0-37.0) g/dL RDW 15.6 H (11.5-15.5) % Neutrophils # 8.2 H (1.3-7.7) k/uL Lymphocytes # 0.4 L (1.0-4.8) k/uL POC Glucose (mg/dL) (75-99) mg/dL Troponin I 0.172 H* 0.167 H* (0.000-0.034) ng/mL 08/29/17 Range/Units 06:05 Hgb (11.4-16.0) gm/dL Hct (34.0-46.0) % MCV (80.0-100.0) fL MCH (25.0-35.0) pg MCHC (31.0-37.0) g/dL RDW (11.5-15.5) % Neutrophils # (1.3-7.7) k/uL Lymphocytes # (1.0-4.8) k/uL POC Glucose (mg/dL) 130 H (75-99) mg/dL Troponin I (0.000-0.034) ng/mL Assessment and Plan Plan: Assessment and plan #1 chest pain with abnormal troponins, cardiac catheterization revealed normal coronary arteries. CRP and sed rate elevated, suggesting myocarditis. #2 weeks acute exacerbation of asthma with associated tracheobronchitis. #3 obesity Plan Fromcardiology's perspective, patient may be able to be discharged home today. We'll make her a follow-up appointment in the office with Dr. SEE per post discharge. DNP note has been reviewed, I agree with a documented findings and plan of care. Patient was seen and examined.
[2017-08-29 13:52] VITALS: BP 143/82; PULSE 98
--- NOTE | 2017-08-31 13:09 | PN ---
PROGRESS NOTE DATE OF SERVICE: 08/28/2017 This patient was a transfer from the [facility] with chest pain and abnormal troponin. Patient underwent a cardiac catheterization, which revealed normal coronary arteries. Maximum troponin was 0.04. Patient has an elevated sed rate as well as CRP suggestive of myocarditis. Patient is feeling better. Her chest pains are improved. First and second heart sounds are normal. No rub is heard. Lungs are clear to auscultation and percussion. We will increase the dose of Lopressor and ambulate the patient and the patient if staying good,. patient can be discharged home. MMODL / IJN: [id number] /
== END 2017-08-29 16:08 | disposition home or self-care (01) | DRG 202 ==
LOC: EC 13:16 → 6SEL 14:19
PROVIDERS: ADMIT Hospitalist; ATTEND Hospitalist
PROC: B2111ZZ Fluoroscopy of Multiple Coronary Arteries using Low Osmolar Contrast (ICD-10-PCS; 2017-08-27)
PROC: 4A023N7 Measurement of Cardiac Sampling and Pressure, Left Heart, Percutaneous Approach (ICD-10-PCS; principal; 2017-08-27 14:50)
DX: J45.41 Moderate persistent asthma with (acute) exacerbation (principal); Z68.43 Body mass index [BMI] 50.0-59.9, adult; G89.29 Other chronic pain; M54.5 Low back pain; F90.9 Attention-deficit hyperactivity disorder, unspecified type; F17.210 Nicotine dependence, cigarettes, uncomplicated; M47.9 Spondylosis, unspecified; I11.9 Hypertensive heart disease without heart failure; E66.01 Morbid (severe) obesity due to excess calories; M19.90 Unspecified osteoarthritis, unspecified site; R79.82 Elevated C-reactive protein (CRP); Q05.9 Spina bifida, unspecified; Z88.0 Allergy status to penicillin; Z88.8 Allergy status to other drugs, medicaments and biological substances; Z79.899 Other long term (current) drug therapy; Z79.1 Long term (current) use of non-steroidal anti-inflammatories (NSAID); Z71.6 Tobacco abuse counseling; Z86.711 Personal history of pulmonary embolism; Z98.51 Tubal ligation status; Z88.6 Allergy status to analgesic agent; Z79.51 Long term (current) use of inhaled steroids
CPT/HCPCS: 36415; 71046; 80053; 82550; 82553; 83735; 84484; 85025; 85610; 85652; 85730; 86140; 93005; 93306; 93458; 94640; 99291